=== PATIENT | male | born 1935 | race Caucasian/White ===

== ENCOUNTER 2017-06-12 15:42 | Emergency (ER) | payer OTHER ==
[~2017-06-12] VITALS: Ht 172.7 cm; Wt 73.5 kg
[~2017-06-12 15:42] MED LIST: CARBIDOPA-LEVO1 EAC4; GLIPIZIDE ER2.5 MG; SYNTHROID50 MCG
[2017-06-12] MEDS ORDERED: MEDROLPACK PO (23:05)
== END 2017-06-12 23:55 | disposition home or self-care (01) ==
LOC: ER 15:42
DX: S30.0XXA Contusion of lower back and pelvis, initial encounter (principal); S70.01XA Contusion of right hip, initial encounter; R53.1 Weakness; G20 Parkinson's disease; W01.198A Fall on same level from slipping, tripping and stumbling with subsequent striking against other object, initial encounter; Y93.89 Activity, other specified; Y92.013 Bedroom of single-family (private) house as the place of occurrence of the external cause; Y99.8 Other external cause status

== ENCOUNTER 2019-05-25 09:38 | Emergency (ER) | payer OTHER ==
[~2019-05-25] VITALS: Ht 170.2 cm; Wt 67.1 kg
[~2019-05-25 09:38] MED LIST changes: +MEDROLPACK PO
[2019-05-25] MEDS ORDERED: ARICEPT5 MG PO (10:15)
[2019-05-25] MEDS ORDERED: ELIQUIS2.5 MG PO (10:15)
[2019-05-25] MEDS ORDERED: GLUMETZA1000 MG PO (10:16)
[2019-05-25] MEDS ORDERED: MIDODRINE HCL2.5 MG PO (10:16)
[2019-05-25] MEDS ORDERED: NEURO MAX85 GM (10:17)
[2019-05-25] MEDS ORDERED: CELECOXIB100 MG PO (15:15)
== END 2019-05-25 18:43 | disposition home or self-care (01) ==
LOC: ER 09:38
DX: S70.02XS Contusion of left hip, sequela (principal); S30.1XXS Contusion of abdominal wall, sequela; S50.12XS Contusion of left forearm, sequela; S20.212S Contusion of left front wall of thorax, sequela; W18.39XS Other fall on same level, sequela